=== PATIENT | male | born 1990 | race Caucasian/White ===

== ENCOUNTER → 2016-08-01 | Outpatient (CLI) | payer BC ==
--- NOTE | 2016-08-02 03:39 | REP ---
Clinical: Bilateral groin pain; evaluate for hernia. Technique: Real time kulkarni scale ultrasound examination using linear high frequency transducer. Findings: Ultrasound examination of the left lower quadrant and bilateral inguinal canals demonstrates normal subcutaneous tissues. No mass lesion, fluid collection, or evidence for hernia. Impression: Normal examination without evidence for hernia. Signed by Demetri Herrera MD 08/02/2016 03:31 A
== END ==
LOC: M RAD 13:06
PROVIDERS: ATTEND Surgery
DX: R10.32 Left lower quadrant pain (principal)

== ENCOUNTER → 2019-01-11 | Outpatient (REF) | payer OTHER ==
[2019-01-11 19:33] LABS: BLOOD UREA NITROGEN 17 MG/DL (7-18); CALCIUM LEVEL 9.2 MG/DL (8.5-10.1); CARBON DIOXIDE LEVEL 30 MEQ/L (21-32); CHLORIDE LEVEL 107 MEQ/L (98-107); FREE T4 0.97 NG/DL (0.76-1.46); GLOMERULAR FILTRATION RATE > 60.0 (>60); GLUCOSE, FASTING 86 MG/DL (70-100); POTASSIUM SERUM 4.3 MEQ/L (3.5-5.1); SODIUM LEVEL 141 MEQ/L (136-145)
== END ==
LOC: M SFHCADAM 14:44
PROVIDERS: ATTEND Physician Assistant
DX: R63.5 Abnormal weight gain (principal); Z83.49 Family history of other endocrine, nutritional and metabolic diseases

== ENCOUNTER 2019-06-06 17:02 | Emergency (ER) | payer OTHER ==
[~2019-06-06] VITALS: Ht 172.7 cm; Wt 101.8 kg
[2019-06-06] MEDS ORDERED: DICY20TA11 (17:13)
[2019-06-06] MEDS ORDERED: NS 1,000 ML IV SCH (17:57)
[2019-06-06] MEDS ORDERED: ONDANSETRON 4MG/2ML VIAL (J2405) IV ONE (18:00)
[2019-06-06] MEDS ORDERED: PANTOPRAZOLE 40MG INJ (PROTONIX) (C9113) IV ONE (18:00)
[2019-06-06] MEDS ORDERED: KETOROLAC 30 MG/ML VIAL (J1885) IV ONE (18:00)
[2019-06-06 18:54] LABS: INR 1.05; PROTHROMBIN TIME 13.4 SECONDS (11.8-14.0)
--- NOTE | 2019-06-06 18:55 | REPVR ---
PROCEDURE INFORMATION: Exam: CT Abdomen And Pelvis Without Contrast Exam date and time: 06/06/2019 6:06 PM Age: 29 years old Clinical history: Abdominal pain; Generalized; Additional info: Diverticulitis TECHNIQUE: Imaging protocol: Computed tomography of the abdomen and pelvis without contrast. Radiation optimization: All CT scans at this facility use at least one of these dose optimization techniques: automated exposure control; mA and/or kV adjustment per patient size (includes targeted exams where dose is matched to clinical indication); or iterative reconstruction. COMPARISON: Pelvis, limited US 08/01/2016 1:24 PM FINDINGS: Limitations: Assessment of vascular structures, soft tissues, and organs is limited due to lack of IV contrast. Liver: Diffusely hypodense liver consistent with hepatic steatosis. Gallbladder and bile ducts: No calcified stones. No ductal dilation. Pancreas: Faint fat stranding adjacent to the pancreatic head and neck. No ductal dilatation. Spleen: Normal. No splenomegaly. Adrenals: Normal. No mass. Kidneys and ureters: No hydronephrosis. No urolithiasis. Stomach and bowel: Colonic diverticulosis without evidence of diverticulitis. No mucosal thickening. No obstruction. Appendix: No evidence of appendicitis. Intraperitoneal space: No free air. No significant fluid collection. Vasculature: No abdominal aortic aneurysm. Lymph nodes: No enlarged lymph nodes. Bladder: Unremarkable. Reproductive: Unremarkable. Bones/joints: Unremarkable. No acute fracture. Soft tissues: Small fat containing umbilical hernia. IMPRESSION: 1. Colonic diverticulosis, without evidence of acute diverticulitis. 2. Findings suspicious for acute pancreatitis. Please correlate with clinical findings. 3. Nonacute/incidental findings above. Electronically signed by: Keyshawn Wooten On 06/06/2019 18:55:18 PM
[2019-06-06 18:57] LABS: AMYLASE 45 U/L (25-115); LIPASE 149 U/L (73-393)
[2019-06-06] MEDS ORDERED: NORC1TAB7 PO (20:14)
[2019-06-06] MEDS ORDERED: ZOFR4TAB16 PO (20:14)
[2019-06-06 20:26] VITALS: BP 128/85
[2019-06-07 10:18] LABS: HEPATITIS B SURFACE ANTIGEN NEGATIVE (NEGATIVE)
[2019-06-07 10:46] LABS: HEPATITIS B CORE ANTIBODY IGM NEGATIVE (NEGATIVE); HEPATITIS C VIRUS ABY INDEX 0.1 INDEX (<0.8)
[2019-06-07 10:48] LABS: HEPATITIS A ANTIBODY IGM NEGATIVE (NEGATIVE)
== END 2019-06-06 20:28 | disposition home or self-care (01) ==
LOC: M ED 17:02
DX: K85.92 Acute pancreatitis with infected necrosis, unspecified (principal); R10.9 Unspecified abdominal pain
CPT/HCPCS: 74176; 82150; 83690; 85610; 86705; 86709; 86803; 87340; 96361; 96374; 96375; 99284; C9113; J1885; J2405

== ENCOUNTER → 2019-06-06 | Outpatient (REF) | payer OTHER ==
[~2019-06-06] MED LIST: DICY20TA11; NORC1TAB7 PO; ZOFR4TAB16 PO
[2019-06-06 11:00] LABS: BASO # 0.1 10^3/uL (0.0-0.2); BASO % 0.7 % (0.0-1.0); EOS # 0.3 10^3/uL (0.0-0.5); EOS % 3.2 % (0.0-3.0); HEMATOCRIT 48.5 % (42.0-52.0); HEMOGLOBIN 16.4 g/dl (13.5-17.5); LYMPH # 2.3 10^3/uL (1.5-5.0); LYMPH % 28.2 % (24.0-44.0); MEAN CORPUSCULAR HEMOGLOBIN 28.7 pg (27.0-33.0); MEAN CORPUSCULAR HGB CONC 33.8 g/dl (32.0-36.5); MEAN CORPUSCULAR VOLUME 84.8 fl (80.0-96.0); MONO # 0.6 10^3/uL (0.0-0.8); MONO % 7.2 % (0.0-5.0); NEUTROPHILS # 4.9 10^3/uL (1.5-8.5); NEUTROPHILS % 60.3 % (36.0-66.0); PLATELET COUNT, AUTOMATED 314 10^3/uL (150-450); RED BLOOD COUNT 5.72 10^6/uL (4.30-6.10); WHITE BLOOD COUNT 8.2 10^3/uL (4.0-10.0)
[2019-06-06 11:03] LABS: ALBUMIN 4.2 GM/DL (3.2-5.2); ALT/SGPT 219 U/L (12-78); BILIRUBIN,TOTAL 1.6 MG/DL (0.2-1.0); BLOOD UREA NITROGEN 19 MG/DL (7-18); CALCIUM LEVEL 9.4 MG/DL (8.5-10.1); CARBON DIOXIDE LEVEL 29 MEQ/L (21-32); CHLORIDE LEVEL 108 MEQ/L (98-107); CREATININE FOR GFR 1.19 MG/DL (0.70-1.30); GLOMERULAR FILTRATION RATE > 60.0 (>60); GLUCOSE, FASTING 97 MG/DL (70-100); POTASSIUM SERUM 4.2 MEQ/L (3.5-5.1); SODIUM LEVEL 143 MEQ/L (136-145); TOTAL PROTEIN 7.9 GM/DL (6.4-8.2)
== END ==
LOC: M SFHCADAM 08:46
PROVIDERS: ATTEND Physician Assistant
DX: R10.32 Left lower quadrant pain (principal); R19.4 Change in bowel habit

== ENCOUNTER → 2019-06-10 | Outpatient (REF) | payer OTHER | LOC: M SFHCADAM 12:55 | PROVIDERS: ATTEND Physician Assistant | DX: R10.32 Left lower quadrant pain (principal) ==

== ENCOUNTER → 2019-06-21 | Outpatient (REF) | payer OTHER ==
[2019-06-21 13:18] LABS: HEMATOCRIT 47.2 % (42.0-52.0); MEAN CORPUSCULAR HEMOGLOBIN 28.8 pg (27.0-33.0); MEAN CORPUSCULAR HGB CONC 33.9 g/dl (32.0-36.5); MEAN CORPUSCULAR VOLUME 84.9 fl (80.0-96.0); PLATELET COUNT, AUTOMATED 305 10^3/uL (150-450); RED BLOOD COUNT 5.56 10^6/uL (4.30-6.10); WHITE BLOOD COUNT 6.7 10^3/uL (4.0-10.0)
[2019-06-21 13:57] LABS: ALBUMIN 4.1 GM/DL (3.2-5.2); ALT/SGPT 151 U/L (12-78); BILIRUBIN,TOTAL 1.5 MG/DL (0.2-1.0); BLOOD UREA NITROGEN 17 MG/DL (7-18); CALCIUM LEVEL 8.8 MG/DL (8.5-10.1); CARBON DIOXIDE LEVEL 28 MEQ/L (21-32); CHLORIDE LEVEL 108 MEQ/L (98-107); CHOLESTEROL LEVEL 147 MG/DL (<200); CHOLESTEROL RISK RATIO 3.769 (<5); CREATININE FOR GFR 1.15 MG/DL (0.70-1.30); GLOMERULAR FILTRATION RATE > 60.0 (>60); GLUCOSE, FASTING 93 MG/DL (70-100); HDL CHOLESTEROL 39 MG/DL (>40); LDL CHOLESTEROL 94 MG/DL (<100); NON-HDL-C 108 MG/DL; POTASSIUM SERUM 4.3 MEQ/L (3.5-5.1); SODIUM LEVEL 141 MEQ/L (136-145); TOTAL PROTEIN 7.3 GM/DL (6.4-8.2); TRIGLYCERIDES LEVEL 72 MG/DL (<150)
[2019-06-21 14:01] LABS: TOTAL 25(OH) VITAMIN D 36.2 NG/ML (30.0-100.0)
== END ==
LOC: M SFHCADAM 09:47
PROVIDERS: ATTEND Physician Assistant
DX: K76.0 Fatty (change of) liver, not elsewhere classified (principal); K85.90 Acute pancreatitis without necrosis or infection, unspecified; R74.8 Abnormal levels of other serum enzymes

== ENCOUNTER → 2019-07-09 | Outpatient (REF) | payer OTHER ==
[2019-07-11 00:07] LABS: ANA (HEP2) Negative (.); ANTI-MITOCHONDRIAL ANTIBODY <20.0 Units (0.0-20.0)
== END ==
LOC: M SFHCADAM 08:05
PROVIDERS: ATTEND Physician Assistant
DX: R74.8 Abnormal levels of other serum enzymes (principal)

== ENCOUNTER → 2019-07-22 | Outpatient (CLI) | payer OTHER | LOC: M RAD 07:07 | PROVIDERS: ATTEND Physician Assistant | DX: Z53.9 Procedure and treatment not carried out, unspecified reason (principal); R74.8 Abnormal levels of other serum enzymes; R10.11 Right upper quadrant pain ==

== ENCOUNTER → 2019-07-29 | Outpatient (CLI) | payer OTHER ==
[~2019-07-29] MED LIST changes: +PROHANCE 279.3MG/ML 15ML VIAL (A9576) As Ordered ONE; +PROHANCE 279.3MG/ML 5ML VIAL (A9576) As Ordered ONE
--- NOTE | 2019-07-30 09:27 | REP ---
MRI PANCREAS WITH AND WITHOUT CONTRAST: TECHNIQUE: Multiple sequences obtained in the axial and coronal planes prior to and following the intravenous administration of 20 mL ProHance. Pancreas demonstrates normal homogeneous signal intensity and enhancement with no evidence of mass. There is no pancreatic ductal dilatation. Pancreatic duct is quite small. Common bile duct is not dilated measuring only a couple of mm in maximum diameter. Gallbladder is grossly un. Visualized liver demonstrates findings of diffuse fatty infiltration. No enhancing mass is seen in the visualized liver. Visualized portions of the spleen and adrenals are unremarkable. The kidneys appear normal. There is no hydronephrosis. There is no adenopathy in the visualized abdomen. There is also no evidence of free fluid in the visualized abdomen. IMPRESSION: No pancreatic abnormality identified. No evidence of mass or pancreatic duct dilatation. Diffuse fatty infiltration of the liver. Electronically Signed by Manuel Varela MD 07/31/2019 01:26 P
== END ==
LOC: M RAD 17:03
PROVIDERS: ATTEND Internal Medicine Gastroenterology
DX: R19.7 Diarrhea, unspecified (principal)
CPT/HCPCS: 74183; A9576

== ENCOUNTER → 2019-07-29 | Outpatient (REF) | payer OTHER ==
[~2019-07-29] MED LIST changes: -PROHANCE 279.3MG/ML 15ML VIAL (A9576) As Ordered ONE; -PROHANCE 279.3MG/ML 5ML VIAL (A9576) As Ordered ONE
== END ==
LOC: M LAB REF 14:36
PROVIDERS: ATTEND Internal Medicine Gastroenterology
DX: R19.7 Diarrhea, unspecified (principal); K85.00 Idiopathic acute pancreatitis without necrosis or infection

== ENCOUNTER → 2019-07-30 | Outpatient (CLI) | payer OTHER ==
--- NOTE | 2019-07-30 15:06 | REP ---
HIDA SCAN WITH GALLBLADDER EJECTION FRACTION: Following the intravenous administration of 6.6 mCi technetium 99m mebrofenin, multiple images of the right upper quadrant are performed every 5 minutes for a period of 1 hour. The gallbladder is visualized at 10 minutes postinjection with no scintigraphic evidence of cholecystitis. There is no bowel activity by 1 hour, which may indicate a hypertonic sphincter of Oddi. At the 1-hour preethi, 8 ounces of Ensure Enlive is ingested and further imaging is performed for 1 hour. There is immediate [id number] transit following ingestion of Ensure. Gallbladder activity is measured. The gallbladder ejection fraction is calculated to be 55%, which is normal. IMPRESSION: Delayed [id number]-pt-[id number] transit, which may indicate a hypertonic sphincter of Oddi. No evidence of cholecystitis. Normal gallbladder ejection fraction. Electronically Signed by Manuel Varela MD 07/31/2019 01:48 P
--- NOTE | 2019-07-31 03:56 | REP ---
Clinical: Elevated liver function test with right upper quadrant pain. Technique: Real time kulkarni scale ultrasound examination using curved array transducer. Findings: Liver is increased echogenicity with poor through transmission suggesting fatty infiltration. No obvious focal hepatic lesion identified. The pancreas is incompletely evaluated due to interposed bowel gas but visualized portions appear normal. The gallbladder is unremarkable and without gallstones, wall thickening, or pericholecystic fluid. No biliary ductal dilatation is appreciated and the common bile duct measures 3.4 mm diameter. Right kidney is normal in reniform shape without hydronephrosis and measures 9.7 x 5.9 x 4.7 cm. No ascites. Impression: Hepatic steatosis. Electronically Signed by Demetri Herrera MD 07/31/2019 03:48 A
== END ==
LOC: M RAD 07:03
PROVIDERS: ATTEND Physician Assistant
DX: R74.8 Abnormal levels of other serum enzymes (principal); R10.11 Right upper quadrant pain
CPT/HCPCS: 76705; 78227; A9537; J2805

== ENCOUNTER → 2019-08-19 | Outpatient (CLI) | payer OTHER ==
[2019-08-19 14:03] LABS: ALBUMIN 4.3 GM/DL (3.2-5.2); BILIRUBIN,DIRECT 0.3 MG/DL (0.0-0.2); BILIRUBIN,TOTAL 1.8 MG/DL (0.2-1.0); TOTAL PROTEIN 7.3 GM/DL (6.4-8.2)
== END ==
LOC: M LABDRWAD 08:41
PROVIDERS: ATTEND Internal Medicine Gastroenterology
DX: R19.7 Diarrhea, unspecified (principal); K85.00 Idiopathic acute pancreatitis without necrosis or infection

== ENCOUNTER 2019-09-03 06:48 | Day surgery (SDC) | payer OTHER ==
[~2019-09-03] VITALS: Ht 172.7 cm; Wt 98.4 kg
[2019-09-03] MEDS ORDERED: SIMETHICONE 40MG/0.6ML DROPS 30ML As Ordered ONE (06:54)
[2019-09-03] MEDS ORDERED: NS 1,000 ML IV ONE (07:00)
[2019-09-03] MEDS ORDERED: propofoL 200 MG/20 ML VIAL As Ordered ONE ×2 (07:04→07:49)
[2019-09-03] MEDS ORDERED: LIDOCAINE 2% INJ 100 MG/5 ML SDV (FOR ANES.) As Ordered ONE (07:05)
[2019-09-03] MEDS ORDERED: GLYCOPYRROLATE INJ 0.2 MG/ML 2 ML VIAL As Ordered ONE (07:43)
[2019-09-03 08:27] VITALS: BP 109/69
--- NOTE | 2019-09-03 08:50 | ROOR ---
Patient Name: Jerad Morris Procedure Date: 09/03/2019 7:29 AM Date of : 1990 Age: 29 Room: [facility] Gender: Male Note Status: Finalized Procedure: Colonoscopy Indications: Clinically significant diarrhea of unexplained origin, Hematochezia Providers: Guzman Maguire MD Referring MD: Roland Rizvi MD Requesting Provider: Medicines: Monitored Anesthesia Care Complications: No immediate complications. Procedure: Pre-Anesthesia Assessment: - Prior to the procedure, a History and Physical was performed, and patient medications and allergies were reviewed. The patient is competent. The risks and benefits of the procedure and the sedation options and risks were discussed with the patient. All questions were answered and informed consent was obtained. Patient identification and proposed procedure were verified by the physician, the nurse and the anesthesiologist in the procedure room. Mental Status Examination: alert and oriented. Airway Examination: normal oropharyngeal airway and neck mobility. Respiratory Examination: clear to auscultation. CV Examination: normal. Prophylactic Antibiotics: The patient does not require prophylactic antibiotics. Prior Anticoagulants: The patient has taken no previous anticoagulant or antiplatelet agents. ASA Grade Assessment: II - A patient with mild systemic disease. After reviewing the risks and benefits, the patient was deemed in satisfactory condition to undergo the procedure. The anesthesia plan was to use monitored anesthesia care (MAC). Immediately prior to administration of medications, the patient was re-assessed for adequacy to receive sedatives. The heart rate, respiratory rate, oxygen saturations, blood pressure, adequacy of pulmonary ventilation, and response to care were monitored throughout the procedure. The physical status of the patient was re-assessed after the procedure. The Colonoscope was introduced through the anus and advanced to the terminal ileum, with identification of the appendiceal orifice and IC valve. The colonoscopy was performed without difficulty. The patient tolerated the procedure well. The quality of the bowel preparation was good. The terminal ileum, ileocecal valve, appendiceal orifice, and rectum were photographed. Scope insertion time was 2 minutes. Scope withdrawal time was 10 minutes. The total duration of the procedure was 15 minutes. Findings: The perianal and digital rectal examinations were normal. The terminal ileum appeared normal. A 30 mm polyp was found in the rectum. The polyp was multi-lobulated and sessile. Preparations were made for mucosal resection. Chromoscopy with methylene blue was done to preethi the borders of the lesion. 4 mL of Eleview was injected with adequate lift of the lesion from the muscularis propria. Snare mucosal resection was performed. A 30 mm area was resected. Resection and retrieval were complete. There was no bleeding at the end of the procedure. To close a defect after polypectomy, one hemostatic clip was successfully placed. There was no bleeding at the end of the procedure. Verification of patient identification for the specimen was done by the physician and nurse using the patient's name, date and medical record number. Estimated blood loss was minimal. The retroflexed view of the distal rectum and anal verge was normal and showed no anal or rectal abnormalities. Impression: - The examined portion of the ileum was normal. - One 30 mm polyp in the rectum, removed with mucosal resection. Resected and retrieved. Clip was placed. - Mucosal resection was performed. Resection and retrieval were complete. Recommendation: - Patient has a contact number available for emergencies. The signs and symptoms of potential delayed complications were discussed with the patient. Return to normal activities tomorrow. Written discharge instructions were provided to the patient. - High fiber diet. - Continue present medications. - Miralax 1 capful (17 grams) in 8 ounces of water PO daily for 5 days. - Await pathology results. - Repeat colonoscopy in 1 year for surveillance based on pathology results. - Telephone GI clinic for pathology results in 2 weeks. - Return to primary care physician. Guzman Maguire MD Guzman Maguire MD 09/03/2019 8:50:11 AM Electronically signed by Guzman Maguire MD Number of Addenda: 0 Note Initiated On: 09/03/2019 7:29 AM Estimated Blood Loss: Estimated blood loss was minimal.
== END 2019-09-03 08:28 | disposition home or self-care (01) ==
LOC: M OPP 06:48
PROVIDERS: ATTEND Internal Medicine Gastroenterology
DX: K62.1 Rectal polyp (principal); R19.7 Diarrhea, unspecified; K92.1 Melena; K76.0 Fatty (change of) liver, not elsewhere classified

== ENCOUNTER → 2019-12-18 | Outpatient (REF) | payer OTHER | LOC: M SFHCADAM 14:06 | PROVIDERS: ATTEND Family Medicine | DX: R10.32 Left lower quadrant pain (principal) ==

== ENCOUNTER → 2019-12-19 | Outpatient (CLI) | payer OTHER ==
--- NOTE | 2019-12-19 10:46 | REP ---
Clinical: Acute left lower quadrant pain. Technique: Axial nine contrast images from the lung bases to the pubic symphysis with coronal and sagittal re-formations. Comparison: 06/06/2019. Findings: Lung bases are clear. Visualized heart and pericardium normal. Diffuse fatty infiltration to the liver noted. Spleen, pancreas, gallbladder, bilateral adrenal glands and kidneys are normal. The enteric system is without obstruction or acute inflammatory process. Normal terminal ileum and cecum identified in the right lower quadrant. Pelvis demonstrates normal bladder and age appropriate prostate/seminal vesicles. No ascites. No free air. No adenopathy. Abdominal aorta without aneurysm. Musculoskeletal structures are intact. Impression: 1. Hepatic steatosis. 2. No acute abdominopelvic pathology appreciated. Electronically Signed by Demetri Herrera MD 12/19/2019 10:37 A
== END ==
LOC: M RAD 09:37
PROVIDERS: ATTEND Family Medicine
DX: K76.0 Fatty (change of) liver, not elsewhere classified (principal); R10.32 Left lower quadrant pain

== ENCOUNTER → 2020-09-06 | Outpatient (CLI) | payer OTHER | LOC: M LABSMTC 09:26 | PROVIDERS: ATTEND Anesthesiology | DX: Z01.818 Encounter for other preprocedural examination (principal); Z20.822 Contact with and (suspected) exposure to COVID-19 ==

== ENCOUNTER 2020-09-11 08:35 | Day surgery (SDC) | payer OTHER ==
[~2020-09-11] VITALS: Ht 172.7 cm; Wt 104.7 kg
[~2020-09-11 08:35] MED LIST changes: +NS 1,000 ML IV ONE
[2020-09-11] MEDS ORDERED: propofoL 200 MG/20 ML VIAL As Ordered ONE ×2 (09:20→09:31)
[2020-09-11] MEDS ORDERED: LIDOCAINE 2% 100MG/5ML SDV (FOR ANES.) As Ordered ONE (09:20)
--- NOTE | 2020-09-11 09:51 | ROOR ---
Patient Name: Jerad Morris Procedure Date: 09/11/2020 9:26 AM Date of : 1990 Age: 30 Room: [facility] Gender: Male Note Status: Finalized Procedure: Flexible Sigmoidoscopy Indications: High risk colon cancer surveillance: Personal history of adenoma (10 mm or greater in size), High risk colon cancer surveillance: Personal history of adenoma with villous component Providers: Guzman Maguire MD Referring MD: KEVIN Ríos Requesting Provider: Medicines: Monitored Anesthesia Care Complications: No immediate complications. Procedure: Pre-Anesthesia Assessment: - Prior to the procedure, a History and Physical was performed, and patient medications and allergies were reviewed. The patient is competent. The risks and benefits of the procedure and the sedation options and risks were discussed with the patient. All questions were answered and informed consent was obtained. Patient identification and proposed procedure were verified by the physician, the nurse and the anesthesiologist in the procedure room. Mental Status Examination: alert and oriented. Airway Examination: normal oropharyngeal airway and neck mobility. Respiratory Examination: clear to auscultation. CV Examination: normal. Prophylactic Antibiotics: The patient does not require prophylactic antibiotics. Prior Anticoagulants: The patient has taken no previous anticoagulant or antiplatelet agents. ASA Grade Assessment: II - A patient with mild systemic disease. After reviewing the risks and benefits, the patient was deemed in satisfactory condition to undergo the procedure. The anesthesia plan was to use monitored anesthesia care (MAC). Immediately prior to administration of medications, the patient was re-assessed for adequacy to receive sedatives. The heart rate, respiratory rate, oxygen saturations, blood pressure, adequacy of pulmonary ventilation, and response to care were monitored throughout the procedure. The physical status of the patient was re-assessed after the procedure. The Colonoscope was introduced through the anus and advanced to the descending colon. The flexible sigmoidoscopy was accomplished without difficulty. The patient tolerated the procedure well. The quality of the bowel preparation was fair. Scope insertion time was 2 minutes. Scope withdrawal time was 6 minutes. The total duration of the procedure was 8 minutes. Findings: The perianal and digital rectal examinations were normal. Pertinent negatives include normal sphincter tone. A large amount of stool was found from rectum to descending colon, interfering with visualization. Lavage of the area was performed using a large amount of sterile water, resulting in clearance with fair visualization. A 20 mm post mucosectomy scar was found in the rectum. The scar tissue was healthy in appearance. There was no evidence of the previous polyp. This was biopsied with a hot forceps for histology. Verification of patient identification for the specimen was done by the physician and nurse using the patient's name, date and medical record number. Estimated blood loss was minimal. Non-bleeding external and internal hemorrhoids were found during retroflexion. The hemorrhoids were small. Impression: - Preparation of the colon was fair. - Stool from rectum to descending colon. - Post mucosectomy scar in the rectum. Biopsied. - Non-bleeding external and internal hemorrhoids. Recommendation: - The patient will be observed post-procedure, until all discharge criteria are met. - Patient has a contact number available for emergencies. The signs and symptoms of potential delayed complications were discussed with the patient. Return to normal activities tomorrow. Written discharge instructions were provided to the patient. - High fiber diet. - Use original regular Metamucil one teaspoon PO daily. - Miralax 1 capful (17 grams) in 8 ounces of water PO daily. - Await pathology results. - Perform a colonoscopy in 2 years. - Telephone GI clinic for pathology results in 2 weeks. - Return to primary care physician. Procedure Code(s): --- Professional --- 00679, Sigmoidoscopy, flexible; with removal of tumor(s), polyp(s), or other lesion(s) by hot biopsy forceps Diagnosis Code(s): --- Professional --- K64.8, Other hemorrhoids Z98.890, Other specified postprocedural states Z86.010, Personal history of colonic polyps CPT copyright 2019 [employer]. All rights reserved. The codes documented in this report are preliminary and upon conceptor review may be revised to meet current compliance requirements. Guzman Maguire MD Guzman Maguire MD 09/11/2020 9:52:25 AM Electronically signed by Guzman Maguire MD Number of Addenda: 0 Note Initiated On: 09/11/2020 9:26 AM Estimated Blood Loss: Estimated blood loss was minimal.
[2020-09-11 10:07] VITALS: BP 125/79
== END 2020-09-11 10:09 | disposition home or self-care (01) ==
LOC: M OPP 08:35
PROVIDERS: ATTEND Internal Medicine Gastroenterology
DX: K63.5 Polyp of colon (principal); Z98.890 Other specified postprocedural states; K64.8 Other hemorrhoids; Z86.010 Personal history of colon polyps; Z09 Encounter for follow-up examination after completed treatment for conditions other than malignant neoplasm

== ENCOUNTER → 2023-09-27 | Outpatient (REF) | payer OTHER ==
[~2023-09-27] MED LIST changes: -DICY20TA11; +DICY20TA20; -NS 1,000 ML IV ONE
== END ==
LOC: M LAB REF 21:18
PROVIDERS: ATTEND Physician Assistant
DX: J02.9 Acute pharyngitis, unspecified (principal)